=== PATIENT | female | born 1960 ===

== ENCOUNTER 2018-07-30 07:53 | Day surgery (SDC) | payer BC ==
[2018-07-30] VITALS (10 sets, daily range): BP systolic 83–142; BP diastolic 47–68
[~2018-07-30] VITALS: Ht 152.4 cm; Wt 61.2 kg
[~2018-07-30 07:53] MED LIST: LR 1000ml 1,000 ML IVLG SCH
--- NOTE | 2018-07-30 09:07 | Short Stay Surgery H&P ---
History of Present Illness History of Present Illness Chief Complaint Screening colonoscopy HPI Guadalupe Tabor is a 57 year old female who was admitted on for Screening colonoscopy Patient History Allergies: Coded Allergies: No Known Allergies (Unverified , 07/29/18) PAST MEDICAL HISTORY: (1) Diabetes (2) Hyperlipidemia (3) Hypertension Review of Systems Cardiovascular: Reports: no symptoms Respiratory: Reports: no symptoms Skeletal: Reports: no symptoms Gastrointestinal: Reports: no symptoms Genitourinary: Reports: no symptoms Neurologic: Reports: no symptoms Endocrine: Reports: diabetes - type 2 Hematologic: Reports: no symptoms Physical Exam Skin: normal HENT: normal Heart: normal Lungs: normal Abdomen: normal Extremities: normal Genitourinary: normal Plan Plan of Care Colonoscopy Preop Interventions None. Summary of Findings See the reports Attestation Are the patient's medical conditions optimized for surgery? Attestation Response: yes Maribeth Aguirre MD Jul 30, 2018 09:07
--- NOTE | 2018-07-30 09:08 | Pre-Procedure Note/Attestation ---
Pre-Procedure Note/Attestation Complete Prior to Procedure Planned Procedure: left Procedure Narrative: Examination of the colon via colonoscopy Indications for Procedure Pre-Operative Diagnosis: R/O colon polyp/tumor Attestation I attest that I discussed the nature of the procedure; its benefits; risks and complications; and alternatives (and the risks and benefits of such alternatives ), prior to the procedure, with the patient (or the patient's legal manufacturer's service representative). I attest that, if there was a reasonable possibility of needing a blood transfusion, the patient (or the patient's legal manufacturer's service representative) was given the [facility] standardized written summary, pursuant to the [place] Blood Safety Act ([place] Health and Safety Code # 1645, as amended). I attest that I re-evaluated the patient just prior to the surgery and that there has been no change in the patient's H&P, except as documented below: Maribeth Aguirre MD Jul 30, 2018 09:08
[2018-07-30] MEDS ORDERED: METFORMIN HCL1000 M1 ORAL (09:20)
[2018-07-30] MEDS ORDERED: [UNRECOGNIZED DRUG - OTHER] SUBQ (09:20)
[2018-07-30] MEDS ORDERED: LIPITOR20 MG ORAL (09:20)
[2018-07-30] MEDS ORDERED: GLIMEPIRIDE4 MG ORAL (09:20)
[2018-07-30] MEDS ORDERED: BENICAR20 MG ORAL (09:20)
--- NOTE | 2018-07-30 09:26 | Anethesia Preoperative Eval ---
Anesthesia Pre-op PMH/ROS General Date of Evaluation: Jul 30, 2018 Time of Evaluation: 09:23 Anesthesiologist: Maribeth Méndez CRNA ASA Score: ASA 2 Mallampati Score Class I : Soft palate, uvula, fauces, pillars visible Class II: Soft palate, uvula, fauces visible Class III: Soft palate, base of uvula visible Class IV: Only hard plate visible Mallampati Classification: Class II Surgeon: Rosi Diagnosis: Colon screening Surgical Procedure: Colonoscopy Anesthesia History: none Family History: no anesthesia problems Allergies: Coded Allergies: No Known Allergies (Unverified , 07/29/18) Medications: see eMAR Patient NPO?: Yes NPO Date: Jul 30, 2018 NPO Time: 00:00 Past Medical History Cardiovascular: Reports: HTN; Denies: CAD, MS, valve dz, arrhythmia, other Pulmonary: Denies: asthma, COPD, TATIANNA, other Gastrointestinal/Genitourinary: Denies: GERD, CRI, ESRD, other Neurologic/Psychiatric: Denies: dementia, CVA, depression/anxiety, TIA, other Endocrine: Reports: DM; Denies: hypothyroidism, steroids, other HEENT: Denies: cataract (L), cataract (R), glaucoma, RED DEVIL (L), RED DEVIL (R), other Hematology/Immune: Denies: anemia, DVT, bleeding disorder, other Musculoskeletal/Integumentary: Denies: OA, RA, DJD, DDD, edema, other PMH Narrative: as above PSxH Narrative: Oopherectomy, RIGHT rotator cuff repair Anesthesia Pre-op Phys. Exam Physician Exam Last Vital Signs Date Time Temp Pulse Resp B/P (MAP) Pulse Ox O2 Delivery O2 Flow Rate FiO2 07/30/18 09:08 97.9 58 18 83/50 97 Room Air Constitutional: NAD Neurologic: CN 2-12 intact Cardiovascular: RRR Respiratory: CTA Gastrointestinal: S/NT/ND Airway Exam Mallampati Score: Class II MO: full Neck: FROM TMD: > 3 FB ROM: full Teeth: intact Dentures: no upper, no lower Anesthesia Pre-op A/P Risk Assessment & Plan Assessment: ASA2, ok to proceed Plan: MAC Status Change Before Surgery: No Pre-Antibiotics Given Within 1 Hr of Incision: Maribeth Barbosa CRNA Jul 30, 2018 09:26
--- NOTE | 2018-07-30 09:55 | Endoscopy Procedure Note ---
Endoscopy Procedure Note General Indication for Procedure: Screening colon Procedures Performed: colonoscopy - Normal total colonoscopy with evidence of severe pelvic adhesions. See the full report. Specimen: none Pt Tolerated Procedure Well: Yes Estimated Blood Loss: none Anesthesia Anesthesiologist: Ms. Honey CRNA Anesthesia: moderate sedation Medications Medication Given: see anesthesia record Inserted Devices Implant(s) used?: No Quality Quality of Bowel Preparation: Fair Did scope reach the cecum?: Yes Was there any complications?: No GI Core Measures 50 yrs or older w/o bx or poly: Yes 10yrs. F/U not recommended: Yes 10 yrs. F/U needed: Yes <3yrs. since last colonoscopy: No Med reason:<3 yrs.: System Reason:<3 yrs.: Maribeth Aguirre MD Jul 30, 2018 09:55
--- NOTE | 2018-07-30 09:55 | Discharge Instructions ---
Discharge Instructions Discharge Instructions Follow up with: See the doctor after 2 weeks in the office For Congestive Heart Failure Reminder Report to your physician any weight gain of 5 pounds or more in one week. Maribeth Aguirre MD Jul 30, 2018 09:55
--- NOTE | 2018-07-30 10:06 | Immediate Post-Op Evaluation ---
Immediate Post-Op Evalulation Immediate Post-Op Evalulation Procedure: Colonoscopy Date of Evaluation: Jul 30, 2018 Time of Evaluation: 09:56 IV Fluids: LR 500 ml Blood Pressure Systolic: 89 Blood Pressure Diastolic: 47 Pulse Rate: 60 Respiratory Rate: 22 O2 Sat by Pulse Oximetry: 100 Temperature (Fahrenheit): 98.2 Pain Score (1-10): 0 Nausea: No Vomiting: No Complications none Patient Status: awake, reacts, patent Hydration Status: adequate Given Within 1 Hr of Incision: Maribeth Barbosa CRNA Jul 30, 2018 10:06
--- NOTE | 2018-07-30 10:09 | 48 Hour Post Anesthesia Eval ---
Post Anesthesia Evaluation Procedure: Colonoscopy Date of Evaluation: Jul 30, 2018 Time of Evaluation: 10:06 Blood Pressure Systolic: 100 0: 62 Pulse Rate: 54 Respiratory Rate: 10 Temperature (Fahrenheit): 98.2 O2 Sat by Pulse Oximetry: 99 Airway: patent Nausea: Yes Vomiting: Yes Pain Intensity: 0 Hydration Status: adequate Cardiopulmonary Status: stable Mental Status/LOC: patient returned to baseline Follow-up Care/Observations: per GI Post-Anesthesia Complications: none Follow-up care needed: ready to discharge Maribeth Méndez CRNA Jul 30, 2018 10:09
--- NOTE | 2018-07-30 17:32 | Operative Note - Dictated ---
DATE OF OPERATION: 07/30/2018 SURGEON: Maribeth Aguirre M.D. PROCEDURE: Total colonoscopy. PREOPERATIVE DIAGNOSIS: Screening colonoscopy. POSTOPERATIVE DIAGNOSIS: Completely normal total colonoscopy with severe adhesions of the pelvis making the examination difficult. MEDICATION USED: Per house director, Ms. MéndezROS. INSTRUMENT: GIF Olympus videocolonoscope. DESCRIPTION OF PROCEDURE: The patient after arriving an endoscopy unit, was told about risks and benefits of the procedure, which she accepted signed informed consent. At this time, she was put on the left lateral decubitus position and after adequate IV sedation, the scope was gently passed through the anal area and a retroflexion maneuver was applied in the rectum did not reveal any major hemorrhoids or tumors or polyps or inflammatory process. At this point, significant amount of time was spent to pass through highly redundant left colon, which revealed to be involved in pelvic adhesions from outside making the examination quite difficult as the colon also had high redundancy. As I mentioned, significant amount of time was spent to pass through this area reaching to splenic flexure from there into the transverse colon. Again, at this time, the examination was further difficult as the patient did have a high redundancy of the colon and the patient was put on a supine position. Finally with attempts, the scope reached towards the hepatic flexure, guided into the right ascending colon, and reached to the base of the cecum. All these areas remained to be completely normal and there was no any evidence of tumors, polyps, inflammatory process, stricture, etc. The colon cleanup was fair. At this point within 5 to 6 minutes, the scope was gradually pulled out and reexamination of the colon did not reveal any other abnormalities. The patient tolerated the procedure well and left the endoscopy room in a good condition. Maribeth Aguirre M.D. DR: AMRY JOB#: [id number] CC:
== END 2018-07-30 11:30 | disposition home or self-care (01) ==
LOC: GAS 07:53
DX: Z12.11 Encounter for screening for malignant neoplasm of colon (principal); Q43.8 Other specified congenital malformations of intestine; E11.9 Type 2 diabetes mellitus without complications; I10 Essential (primary) hypertension; E78.5 Hyperlipidemia, unspecified
CPT/HCPCS: 82962; 94003; 94150